=== PATIENT | female | born 1950 | race Caucasian/White ===

== ENCOUNTER → 2020-04-19 | Outpatient (CLI) | payer MEDICARE ==
--- NOTE | 2020-04-19 17:47 | Diagnostic Imaging Report ---
HISTORY: Fall 8 days ago. Pain in the first digit. TECHNIQUE: 3 views of the right hand. COMPARISON: None. FINDINGS: No acute fracture or dislocation is seen in the right hand. Alignment appears normal. There are mild degenerative changes at the first carpometacarpal joint. No cortical erosion is seen. IMPRESSION: Degenerative changes at the right first carpometacarpal joint with no acute osseous abnormality seen in the right hand. Dictated by: Dictated on workstation # [id number]
== END ==
LOC: RAD 17:25
PROVIDERS: ATTEND Family Medicine
DX: M18.11 Unilateral primary osteoarthritis of first carpometacarpal joint, right hand (principal)
CPT/HCPCS: 73130